=== PATIENT | female | born 1940 | race Caucasian/White ===

== ENCOUNTER 2021-03-11 10:49 | Outpatient (CLI) | payer MEDICARE ==
[2021-03-11] MEDS ORDERED: Magnevist 469MG/ML 20 ML VIAL ONE (16:37)
== END 2021-03-11 10:50 | disposition home or self-care (01) ==
LOC: TBSIIMAG 10:49
PROVIDERS: ATTEND Internal Medicine Hematology & Oncology
DX: C18.8 Malignant neoplasm of overlapping sites of colon (principal); C78.2 Secondary malignant neoplasm of pleura
CPT/HCPCS: 70553; A9579

== ENCOUNTER 2021-05-30 09:37 | Outpatient (CLI) | payer MEDICARE | END 2021-05-30 09:38 | disposition home or self-care (01) | LOC: PET 09:37 | PROVIDERS: ATTEND Internal Medicine Hematology & Oncology | DX: C18.8 Malignant neoplasm of overlapping sites of colon (principal); C78.02 Secondary malignant neoplasm of left lung | CPT/HCPCS: 78815; A9552 ==

== ENCOUNTER 2021-06-24 12:23 | Day surgery (SDC) | payer MEDICARE ==
[2021-06-24] MEDS ORDERED: diphenhydrAMINE 25 MG CAP PO SCH (13:00)
[2021-06-24] MEDS ORDERED: Acetaminophen 500 MG TAB PO SCH (13:00)
[2021-06-24] MEDS ORDERED: Sodium Chloride 0.9% 20 ML ONE (13:10)
[2021-06-24 16:00] VITALS: BP 194/91; TEMP 97.4
== END 2021-06-24 16:06 | disposition home or self-care (01) ==
LOC: ONC/OP 12:23
PROVIDERS: ATTEND Internal Medicine Hematology & Oncology
PROC: 30233N1 Transfusion of Nonautologous Red Blood Cells into Peripheral Vein, Percutaneous Approach (ICD-10-PCS; principal; 2021-06-24)
DX: D64.9 Anemia, unspecified (principal); D69.6 Thrombocytopenia, unspecified; Z88.1 Allergy status to other antibiotic agents; Z91.018 Allergy to other foods
CPT/HCPCS: 36430; 86850; 86900; 86901; P9016

== ENCOUNTER 2021-09-30 12:30 | Outpatient (CLI) | payer MEDICARE | END 2021-09-30 12:31 | disposition home or self-care (01) | LOC: PET 12:30 | PROVIDERS: ATTEND Internal Medicine Hematology & Oncology | DX: C18.8 Malignant neoplasm of overlapping sites of colon (principal); C78.02 Secondary malignant neoplasm of left lung; R22.2 Localized swelling, mass and lump, trunk | CPT/HCPCS: 78815; A9552 ==

== ENCOUNTER 2022-01-27 14:00 | Outpatient (CLI) | payer MEDICARE | END 2022-01-27 14:01 | disposition home or self-care (01) | LOC: PET 14:00 | PROVIDERS: ATTEND Internal Medicine Hematology & Oncology | DX: C18.8 Malignant neoplasm of overlapping sites of colon (principal); C78.02 Secondary malignant neoplasm of left lung | CPT/HCPCS: 78815; A9552 ==

== ENCOUNTER 2022-06-02 10:26 | Outpatient (CLI) | payer MEDICARE ==
[~2022-06-02 10:26] MED LIST: Iopamidol-370 76% 500 ML 1 ML ONE
== END 2022-06-02 10:27 | disposition home or self-care (01) ==
LOC: BICCT 10:26
PROVIDERS: ATTEND Internal Medicine Hematology & Oncology
DX: C18.8 Malignant neoplasm of overlapping sites of colon (principal); C78.02 Secondary malignant neoplasm of left lung; R91.8 Other nonspecific abnormal finding of lung field
CPT/HCPCS: 71260; 74177; 82565; Q9967

== ENCOUNTER 2022-09-22 10:24 | Outpatient (CLI) | payer MEDICARE | END 2022-09-22 10:25 | disposition home or self-care (01) | LOC: BICCT 10:24 | PROVIDERS: ATTEND Internal Medicine Hematology & Oncology | DX: C18.8 Malignant neoplasm of overlapping sites of colon (principal); C78.02 Secondary malignant neoplasm of left lung; R97.0 Elevated carcinoembryonic antigen [CEA]; R91.8 Other nonspecific abnormal finding of lung field | CPT/HCPCS: 71260; 74177; 82565 ==

== ENCOUNTER 2022-10-08 11:45 | Outpatient (CLI) | payer MEDICARE | END 2022-10-08 11:46 | disposition home or self-care (01) | LOC: PET 11:45 | PROVIDERS: ATTEND Internal Medicine Hematology & Oncology | DX: C18.8 Malignant neoplasm of overlapping sites of colon (principal); C78.02 Secondary malignant neoplasm of left lung | CPT/HCPCS: 78815; A9552 ==

== ENCOUNTER 2022-10-13 08:30 | Day surgery (SDC) | payer MEDICARE ==
[2022-10-09 13:28] VITALS: BMI 25.6
[2022-10-13 08:41] LABS: #Basophils 0.1 thou/uL (0.0-0.2); #Eosinphils 0.2 thou/uL (0.0-0.7); #Lymphocytes 2.2 thou/uL (1.20-3.40); #Monocytes 0.8 thou/uL (0.11-0.59); #Neutrophils 6.1 thou/uL (1.40-6.50); %Basophils 0.7 % (0.0-1.0); %Eosinophils 1.8 % (0.0-10.0); %Lymphocytes 23.2 % (21.0-51.0); %Monocytes 8.6 % (0.0-10.0); %Neutrophils 65.7 % (42.0-75.0); Hemoglobin 12.3 g/dL (12.0-16.0); Mean Corpuscular HGB CONC 32.9 g/dL (32.0-36.0); Mean Platelet Volume 7.5 fL (7.4-10.4); Platelet Count 272 10x3/uL (130-400); Red Blood Cell (RBC) Count 3.74 mill/uL (4.20-5.40); White Blood Cell (WBC) Count 9.3 10x3/uL (4.8-10.8)
[2022-10-13 08:52] LABS: PTT 27.2 sec (22.9-36.1)
[2022-10-13 08:53] LABS: Prothrombin Time 13.4 sec (12.0-14.7)
[2022-10-13 09:42] VITALS: BP 136/69; TEMP 97.4
== END 2022-10-13 13:10 | disposition home or self-care (01) ==
LOC: CT 08:30
PROVIDERS: ATTEND Internal Medicine Hematology & Oncology
PROC: 0BBG3ZX Excision of Left Upper Lung Lobe, Percutaneous Approach, Diagnostic (ICD-10-PCS; principal; 2022-10-13)
DX: C78.02 Secondary malignant neoplasm of left lung (principal); C18.8 Malignant neoplasm of overlapping sites of colon; D70.9 Neutropenia, unspecified; I10 Essential (primary) hypertension; E03.9 Hypothyroidism, unspecified; Z87.891 Personal history of nicotine dependence; Z79.890 Hormone replacement therapy; Z79.899 Other long term (current) drug therapy; Z88.1 Allergy status to other antibiotic agents; Z91.018 Allergy to other foods
CPT/HCPCS: 32408; 36415; 77012; 85025; 85610; 85730; 88305; 88333; 88334; 88341; 88342

== ENCOUNTER 2022-12-22 14:16 | Outpatient (CLI) | payer MEDICARE | END 2022-12-22 14:17 | disposition home or self-care (01) | LOC: CT 14:16 | PROVIDERS: ATTEND Nurse Practitioner Family | DX: C34.12 Malignant neoplasm of upper lobe, left bronchus or lung (principal); C18.9 Malignant neoplasm of colon, unspecified; R91.8 Other nonspecific abnormal finding of lung field | CPT/HCPCS: 71250 ==

== ENCOUNTER 2023-04-05 10:00 | Outpatient (CLI) | payer MEDICARE | END 2023-04-05 10:01 | disposition home or self-care (01) | LOC: SCSCT 10:00 | PROVIDERS: ATTEND Physician Assistant | DX: C18.9 Malignant neoplasm of colon, unspecified (principal); C78.00 Secondary malignant neoplasm of unspecified lung; Z98.890 Other specified postprocedural states; C79.51 Secondary malignant neoplasm of bone; C79.89 Secondary malignant neoplasm of other specified sites | CPT/HCPCS: 71250 ==

== ENCOUNTER 2023-06-09 11:45 | Outpatient (CLI) | payer MEDICARE | END 2023-06-09 11:46 | disposition home or self-care (01) | LOC: PET 11:45 | PROVIDERS: ATTEND Internal Medicine Hematology & Oncology | DX: C18.8 Malignant neoplasm of overlapping sites of colon (principal); C78.02 Secondary malignant neoplasm of left lung | CPT/HCPCS: 78815; A9552 ==

== ENCOUNTER 2023-06-29 09:01 | Outpatient (CLI) | payer MEDICARE ==
[2023-06-29] MEDS ORDERED: Iopamidol 300 61% 30 ML VIAL ONE (14:05)
== END 2023-06-29 09:02 | disposition home or self-care (01) ==
LOC: RAD 09:01
PROVIDERS: ATTEND Internal Medicine Hematology & Oncology
DX: Z45.2 Encounter for adjustment and management of vascular access device (principal); C18.8 Malignant neoplasm of overlapping sites of colon; C78.02 Secondary malignant neoplasm of left lung
CPT/HCPCS: 36598; Q9967

== ENCOUNTER 2023-09-15 11:00 | Outpatient (CLI) | payer MEDICARE | END 2023-09-15 11:01 | LOC: PET 11:00 | PROVIDERS: ATTEND Internal Medicine Hematology & Oncology | DX: C18.8 Malignant neoplasm of overlapping sites of colon (principal); C78.02 Secondary malignant neoplasm of left lung; C78.2 Secondary malignant neoplasm of pleura | CPT/HCPCS: 78815; A9552 ==

== ENCOUNTER 2023-10-22 13:39 | Outpatient (CLI) | payer MEDICARE | END 2023-10-22 13:40 | disposition home or self-care (01) | LOC: ULT 13:39 | PROVIDERS: ATTEND Family Medicine | DX: I11.9 Hypertensive heart disease without heart failure (principal); R06.02 Shortness of breath | CPT/HCPCS: 93306 ==